=== PATIENT | male | born 1975 | race Caucasian/White ===

== ENCOUNTER 2023-12-06 11:43 | Emergency (ER) | payer OTHER, SELFPAY ==
--- NOTE | ~2023-12-06 | XR_ITS ---
EXAMINATION: XR ribs LT 2V w CXR 2V DATE: 12/06/2023 12:19 INDICATION: Pain at the lower left ribs after injury while bending with audible pop TECHNIQUE: A frontal inspiratory view of the chest and 3 views of the left ribs were obtained. COMPARISON: None FINDINGS: Widening of the left acromioclavicular joint with old healed fracture deformity lateral left clavicle . Minimally displaced anterior left eighth rib fracture. There are additional likely old fractures of the lateral left 10th and 11th ribs. Minimal biapical pleural-parenchymal scarring. No other airspac e opacities, pulmonary edema, pleural effusion or pneumothorax. Cardiomediastinal silhouette is catrachita l. IMPRESSION: 1. Fractures of the posterolateral left 10th and 11th ribs which appear chronic but with more acute a ppearing fracture of the anterior left eighth rib. Correlate for point tenderness at these locations. 2. No acute cardiopulmonary disease. Reviewed, dictated and finalized at location A. [facility] MACHINE OPERATOR IMPRESSION: 1. Fractures of the posterolateral left 10th and 11th ribs which appear chronic but with more acute appearing fracture of the anterior left eighth rib. Correl ate for point tenderness at these locations. 2. No acute cardiopulmonary disease.
[2023-12-06 11:44] VITALS: BP 164/115; PULSE 104; RESP 19; TEMP 36.7; O2SAT 100
--- NOTE | 2023-12-06 11:59 | ED.GENADULT ---
HPI - General Adult General Chief complaint: Unspecified Stated complaint: L rib injury Time Seen by Provider: 12/06/23 11:46 Source: patient Mode of arrival: ambulatory Limitations: no limitations History of Present Illness HPI narrative: patient is a 48-year-old male with left rib pain after leaning over of steel rail and lifting heavy equipment. This happened 3 days ago. Onset (ago): day(s) (3) Location: chest ( Left ribs) Radiation: non-radiation Severity: moderate and severe Severity scale (1-10): 7 Quality: sharp Pain Consistency: constant Relieving factors: immobilization Exacerbating factors: movement Associated symptoms: denies other symptoms Treatments prior to arrival: none Related Data Allergies Allergy/AdvReac Type Severity Reaction Status Date / Time No Known Allergies Allergy Verified 12/06/23 11:50 Review of Systems Review of Systems: All systems reviewed & are unremarkable except as noted in HPI and below Constitutional: Constitutional: Reports no additional constitutional complaints Eyes: Eyes: Reports no additional eye complaints ENT: Reports system reviewed and no additional complaints, except as documented Cardiovascular: Cardiovascular: Reports no additional cardiovascular complaints Respiratory: Respiratory: Reports no additional respiratory complaints Gastrointestinal: Gastrointestinal: Reports no additional gastrointestinal complaints Genitourinary: Genitourinary: Reports no additional male genitourinary complaints Musculoskeletal: Musculoskeletal: Reports no additional musculoskeletal complaints Integumentary/Breasts: Skin/Breast: Reports system reviewed and no additional complaints, except as docu Neurologic: Reports system reviewed and no additional complaints, except as documented Psychiatric: Psychiatric: Reports no additional psychiatric complaints Endocrine: Endocrine: Reports no additional endocrine complaints Hematologic/Lymphatic: Hematologic/Lymphatic: Reports no additional hematologic/lymphatic complaints Allergic/Immunologic: Allergic/Immunologic: Reports no additional allergic/immunologic complaints [facility] Family History Family History Father Family history of malignant neoplasm Social History Social History Smoking status: Light tobacco smoker Alcohol intake: current Exam Const: General: cooperative, healthy appearing and comfortable HENMT: Head: normal to inspection, No palpable skull fracture present and normocephalic Eyes: General: appearance normal, both eyes and all related structures Visual Tristan: normal visual tristan by confrontation Alignment and Position: alignment normal Neck: Neck: normal visual inspection, full ROM and no lymphadenopathy Chest: Chest palpation & inspection: normal inspection of the chest, abnormal palpation of chest wall and normal inspection of the chest Other: left ribs around the 8th rib anteriorly has tenderness and slight crepitus without movement of the rib in either direction or deformity Resp: Effort & Inspection: normal respiratory effort and able to speak in complete sentences Auscultation: clear to auscultation bilaterally Percussion: percussion normal Cardio: Jugular venous distension: no JVD Palpation: normal PMI Rate: regular rate Rhythm: regular rhythm Heart sounds: S1 normal heart sound present, S2 normal heart sound present and no murmurs GI: Inspection: normal to inspection, no abdominal wall ecchymosis, no edema and non-distended Back/Spine/Pelvis: Back: no CVA tenderness Skin: General skin exam: normal color, no rashes or lesions noted and elasticity normal Neuro: General: oriented to person, oriented to place, oriented to time, patient oriented x3 and gait normal Cranial nerves: Yes CN's II-XII intact bilaterally Extrem: General: normal to inspection, full ROM, capillary r
[2023-12-06 12:00] VITALS: RESP 16; O2SAT 99
[2023-12-06] MEDS: KETOROLAC (*BKC) 60 MG/2 ML VIAL IM (12:47)
[2023-12-06 12:54] VITALS: BP 135/105; PULSE 88; RESP 19; O2SAT 99
== END 2023-12-06 12:55 | disposition home or self-care (01) ==
PROVIDERS: Emergency Provider Emergency Medicine; PCP Internal Medicine
DX: S22.32XA Fracture of one rib, left side, initial encounter for closed fracture (principal); F17.200 Nicotine dependence, unspecified, uncomplicated; X50.0XXA Overexertion from strenuous movement or load, initial encounter
CPT/HCPCS: 71046; 71100; 96372; 99283; J1885

== ENCOUNTER 2025-09-09 09:42 | Emergency (ER) | payer SELFPAY ==
--- NOTE | ~2025-09-09 | XR_ITS ---
Examination: XR chest 1V portable Clinical History: vision loss Comparison: None Technique: Portable AP Findings: Heart size normal. Lungs clear. No acute bony abnormality. IMPRESSION: 1. No acute cardiopulmonary findings given portable technique. Reviewed, dictated and finalized at location [facility]. [facility]
--- NOTE | ~2025-09-09 | CT_ITS ---
EXAM/PROCEDURE: CTA brain carotid HISTORY: vision loss-B/L COMPARISON: Noncontrast brain CT same date TECHNIQUE: IV contrast enhanced angiography of the neck and brain arteries. FINDINGS: In the visualized upper chest, three-vessel left-sided arch present. At least mild aneurysmal dilatation of the partially visualized ascending thoracic aorta measuring 4.2 cm. Both common carotid and cervical ICAs are patent. Vertebral arteries are patent. The left vertebral artery is dominant. The anterior middle cerebral arteries and intracranial carotid arteries are patent. Basilar artery and singe winder are patent. origin of the left [employer]. No dural sinus thrombosis, AVM or abnormal enhancing lesions/masses seen. Moderate mucoperiosteal thickening in the right maxillary sinus. No abnormal enhancing lesions or masses. 5 mm nodule mid pole of the left thyroid. IMPRESSION: 1. No critical arterial stenosis or occlusion. 2. Incidental findings noted including at least mild aneurysmal dilatation of the partially visualized ascending thoracic aorta, mild paranasal sinus disease, and left lobe thyroid nodule. Reviewed, dictated and finalized at location A. NCE EXECUTIVE IMPRESSION: 1. No critical arterial stenosis or occlusion. 2. Incidental findings noted including at least mild aneurysmal dilatation of t he partially visualized ascending thoracic aorta, mild paranasal sinus disease, and left lobe thyroid nodule.
--- NOTE | ~2025-09-09 | CT_ITS ---
EXAMINATION: CT brain wo con DATE: 09/09/2025 10:07 INDICATION: Bilateral vision loss TECHNIQUE: Computed tomography (CT) of the head was performed without intravenous contrast. Sagittal and coronal reconstructions were performed. The mA was adjusted according to patient size. Iterative reconstruction technique was employed. The dose-length product was 832.33 mGy-cm. COMPARISON: None FINDINGS: A couple small old lacunar infarcts to the left and to the right of midline in the central amrik. No acute intracranial hemorrhage, acute infarction or abnormal extra axial fluid collection. Ventricles are normal and symmetric. No mass/mass effect. The orbits, paranasal sinuses and mastoid air cells are normal. No acute intracranial hemorrhage, acute infarction or abnormal extra axial fluid collection. Ventricles are normal and symmetric. No mass/mass effect. The orbits, paranasal sinuses and mastoid air cells are normal. IMPRESSION: 1. 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 No acute intracranial process. Dr. Romero discussed these findings with Dr. Singletary at 10:05 AM. Reviewed, dictated and finalized at location A. YSIS EQUIPMENT TECHNICIAN IMPRESSION: 1. 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 No acute intr acranial process. Dr. Romero discussed these findings with Dr. Singletary at 10 :05 AM.
--- NOTE | 2025-09-09 09:51 | ECG_ITS ---
Test Date: 2025-09-09 10:18:42 Measurements Intervals [place] Rate: 87 P: 45 [place]: 183 QRS: -53 QRSD: 96 T: 36 QT: 363 QTc: 437 Interpretive Statements SINUS RHYTHM POSSIBLE LEFT ATRIAL ENLARGEMENT [-0.1mV P-WAVE IN V1/V2] LEFT ANTERIOR FASCICULAR BLOCK [QRS AXIS <= -45, QR IN I, RS IN II] No previous ECG available for comparison Electronically Signed On 09-10-2025 10:50:42 [facility] [place] by Oliverio Rivera M.D.
--- NOTE | 2025-09-09 09:56 | ED.GENADULT ---
HPI - General Adult General Chief complaint: Neuro Symptoms/Deficit Stated complaint: I can barely see x 35 mins Time Seen by Provider: 09/09/25 09:55 History of Present Illness HPI narrative: 50-year-old male presents to the emergency department for evaluation for worsening vision on the left of both eyes. patient states this occurred approximately 920. Patient was at a work site when he noticed a change in vision. Patient states he can see well out of the right-sided his eyes but not the left. Patient does have prior history of coronary disease and angioplasty. Patient denies any prior history of CVA. Patient denies any other pain or injury or neurologic changes Related Data Allergies Allergy/AdvReac Type Severity Reaction Status Date / Time No Known Allergies Allergy Verified 09/09/25 10:20 Review of Systems Review of Systems: All systems reviewed & are unremarkable except as noted in HPI and below PMFSH Family History Family History Father Family history of malignant neoplasm Social History Social History Alcohol intake: current Course Vital Signs Vital signs: Vital Signs Temperature 97.8 F 09/09/25 10:12 Pulse Rate 95 09/09/25 10:12 Respiratory Rate 16 09/09/25 10:12 Blood Pressure 139/108 H 09/09/25 10:12 Pulse Oximetry 98 09/09/25 10:12 Oxygen Delivery Room Air 09/09/25 10:12 Temperature 97.8 F 09/09/25 10:12 Pulse Rate 84 09/09/25 10:29 Respiratory Rate 14 09/09/25 10:28 Blood Pressure 139/108 H 09/09/25 10:28 Pulse Oximetry 96 09/09/25 10:28 Oxygen Delivery Room Air 09/09/25 10:12 Medical Decision Making [facility] Narrative Medical decision making narrative: 50-year-old male present to the emergency department for evaluation for acute onset of vision changes at approximately 9:20 a.m.. At re-evaluation at 10:14 a.m. patient states that he has had no improvement of his symptoms. Patient describes extremely blurry vision on the left lateral eye and total loss of vision on the right medial eye. concern for left homonymous hemianopsia. patient does describe a right-sided posterior headache. CTA showed no acute bleed. Patient is not on any blood thinners. Patient is was found blood pressure medication but is not compliant with this. Discussed case with the transfer center at approximately 10:20 a.m. case was discussed with Dr. Montiel with the neuro stroke team and was agreed to give T and K and patient is a time symptoms transfer. I discussed the case with the ED dr Vila Critical Care Procedure Note Authorized and Performed by: Raul Singletary Total critical care time: Approximately 36 minutes Due to a high probability of clinically significant, life threatening deterioration, the patient required my highest level of preparedness to intervene emergently and I personally spent this critical care time directly and personally managing the patient. This critical care time included obtaining a history; examining the patient; pulse oximetry; ordering and review of studies; arranging urgent treatment with development of a management plan; evaluation of patient's response to treatment; frequent reassessment; and, discussions with other providers. This critical care time was performed to assess and manage the high probability of imminent, life-threatening deterioration that could result in multi-organ failure. It was exclusive of separately billable procedures and treating other patients and teaching time. Please see MDM section and the rest of the note for further information on patient assessment and treatment. Differential Diagnosis Differential Diagnosis: CVA, TIA Vital Signs Vital Signs: Vital Signs Temperature 97.8 F 09/09/25 10:12 Pulse Rate 95 09/09/25 10:12 Respiratory Rate 16 09/09/25 10:12 Blood Pressure 139/108 H 09/09/25 10:12 Pulse Oximetry 98 09/09/25 10:12 Oxygen Delivery Room Air 09/09/25 10:12 Temperature 97.8 F 09/09/25 10:12 Pulse Rate 84 09/09/25 10:29 Respiratory Rate 14 09/09/25 10:28 Blood Pressure 139/108 H 09/09/25 10:28 Pulse Oximetry 96 09/09/25 10:28 Oxygen Delivery Room Air 09/09/25 10:12 Lab Data Lab results reviewed: Yes I reviewed the patient's lab results. 09/09/25 09:56 09/09/25 11:03 Labs: Lab Results 09/09/25 09/09/25 09/09/25 Range/Units 09:50 09:56 11:03 WBC 6.8 (4.5-10.0) K/mm3 RBC 4.70 (4.6-6.20) M/mm3 Hgb 16.2 (14.0-18.0) g/dL Hct 47.0 (42.0-52.0) % MCV 100.0 (80-100) fl MCH 34.5 H (26-34) pg MCHC 34.5 (32-36) g/dl RDW 12.7 (11.5-14.5) % Plt Count 251 (150-375) k/mm3 MPV 10.4 (7.4-10.4) fl Immature Gran % (Auto) 0.1 (0-0.5) % Neut % (Auto) 56.5 (45.5-73.1) % Lymph % (Auto) 36.0 (18.3-44.2) % [place] % (Auto) 6.6 (2.6-8.5) % Eos % (Auto) 0.4 (0-4.4) % Baso % (Auto) 0.4 (0.2-1.2) % Lymph # (Auto) 2.46 (0.9-3.2) K/mm3 [place] # (Auto) 0.5 (0.1-0.6) K/mm3 Eos # (Auto) 0.0 (0-0.3) K/mm3 Baso # (Auto) 0.0 (0.0-0.1) K/mm3 Abs Immat Gran (auto) 0.01 (0.00-0.031) K/mm3 Absolute Neuts (auto) 3.9 (1.3-6.7) K/mm3 Absolute Nucleated RBC 0.000 (0.0-0.012) K/mm3 Nucleated RBC % 0.0 (0.0-0.2) % PT 11.8 (11.1-14.7) Seconds INR 0.9 APTT 25.9 (22.3-36.8) Seconds Sodium 140 (137-145) mmol/L Potassium 3.5 (3.4-5.0) mmol/L Chloride 102 (98-107) mmol/L Carbon Dioxide 25 (22-30) mmol/L Anion Gap 13 H (4-12) mmol/L BUN 8 L (9-20) mg/dL Creatinine 1.02 1.30 (0.7-1.3) mg/dL Estim Creat Clear Calc Not Reportable Not Reportable Estimated GFR > 60 59 (59 - ) Glucose 108 (65-110) mg/dL POC Capillary Glucose 147 H (65-105) mg/dl Calcium 10.3 H (8.4-10.2) mg/dL Total Bilirubin 0.4 (0.2-1.3) mg/dL AST 51 (17-59) U/L ALT 54 H (6-50) U/L Alkaline Phosphatase 97 (38-126) U/L Troponin I < 0.012 (0.000-0.034) ng/mL Total Protein 9.9 H (6.3-8.2) g/dL Albumin 5.2 H (3.5-5.1) g/dL Imaging Data Radiologist's impression: Impressions Head CT 09/09/25 10:12 IMPRESSION: 1. 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 No acute intracranial process. Dr. Romero discussed these findings with Dr. Singletary at 10:05 AM. Head/Neck CTA 09/09/25 10:23 IMPRESSION: 1. No critical arterial stenosis or occlusion. 2. Incidental findings noted including at least mild aneurysmal dilatation of the partially visualized ascending thoracic aorta, mild paranasal sinus disease, and left lobe thyroid nodule. Chest X-Ray 09/09/25 10:47 IMPRESSION: 1. No acute cardiopulmonary findings given portable technique. Discharge Plan Discharge Clinical Impression: Cerebrovascular accident, Homonymous hemianopsia due to recent cerebral infarction Patient Disposition: Acute Care Hospital Condition: Critical Patient Language: Slovenian Prescriptions: No Action hydrocodone-acetaminophen 5-325 mg tablet 1 tablet PO Q6H PRN (Reason: pain) Qty: 20 0RF Follow-up/Referrals: Tripp,Brandon Jonas MD [Primary Care Provider] Quality Stroke Scale Stroke Scale 1: Stroke scale time:: 09:57 1a Level of consciousness: alert-0 1b Level of consciousness questions: answers both correctly-0 1c Level of consciousness commands: obeys both correctly-0 2 Best gaze: normal-0 3 Visual: bilateral hemianopia-3 4 Facial palsy: normal-0 5a Motor: left arm: no drift-0 5b Motor: right arm: no drift-0 6a Motor: left leg: no drift-0 6b Motor: right leg: no drift-0 7 Limb ataxia: absent-0 8 Sensory: normal-0 9 Best language: no aphasia-0 10 Dysarthria: normal-0 11 Extinction and inattention: no abnormality-0 Level:: 3
[2025-09-09 10:02] LABS: Hematocrit 47.0 % (42.0-52.0); Hemoglobin 16.2 g/dL (14.0-18.0); Immature Granulocyte Percent A 0.1 % (0-0.5); Lymphocytes Absolute Auto 2.46 K/mm3 (0.9-3.2); Mean Corpuscular HGB Conc 34.5 g/dl (32-36); Mean Corpuscular Hemoglobin 34.5 pg (26-34); Mean Corpuscular Volume 100.0 fl (80-100); Nucleated Red Blood Cells Absolute Auto 0.000 K/mm3 (0.0-0.012); Nucleated Red Blood Cells Perc 0.0 % (0.0-0.2); Platelet Count Result 251 k/mm3 (150-375); Red Blood Count 4.70 M/mm3 (4.6-6.20); White Blood Count 6.8 K/mm3 (4.5-10.0)
[2025-09-09 10:07] LABS: Estimated Glomerular Filt Rate 59
[2025-09-09 10:12] VITALS: BP 139/108; PULSE 95; RESP 16; TEMP 36.6; O2SAT 98
[2025-09-09 10:13] LABS: INR 0.9; Prothrombin Time 11.8 Seconds (11.1-14.7)
[2025-09-09 10:14] LABS: Partial Thromboplastin Time 25.9 Seconds (22.3-36.8)
[2025-09-09 10:16] LABS: Alanine Aminotransferase 54 U/L (6-50); Albumin Level 5.2 g/dL (3.5-5.1); Alkaline Phosphatase 97 U/L (38-126); Anion Gap 13 mmol/L (4-12); Aspartate Amino Transferase 51 U/L (17-59); Bilirubin,Total 0.4 mg/dL (0.2-1.3); Blood Urea Nitrogen 8 mg/dL (9-20); Calcium 10.3 mg/dL (8.4-10.2); Carbon Dioxide 25 mmol/L (22-30); Chloride 102 mmol/L (98-107); Estimated Glomerular Filt Rate > 60; Glucose 108 mg/dL (65-110); Potassium 3.5 mmol/L (3.4-5.0); Sodium 140 mmol/L (137-145); Total Protein 9.9 g/dL (6.3-8.2)
--- OUTSIDE RECORDS SUMMARY | 2025-09-09 10:21 | XMS_ITS | Clinical Summary ---
Author Organization [facility] Address [address] [place] [address] Phone Care Team Providers Care Net Washer Name Role Phone Casper Almaguer MD Primary Care Provider [phone] Allergies No known active allergies Medications famotidine (PEPCID) 40 MG Tablet Take 40 mg by mouth. Active HYDROcodone-nellie taminophen (NORCO) 5-325 MG TabletIndicatio ns:Right foot pain,Closed displaced fracture of middle phalanx of lesser toe of right foot, initial encounter Take 1 Tablet by mouth every 4 hours as needed for Moderate or more severe pain. 12 Tablet 1 Active Additional Information Patient not taking.Reported on 05/08/2023 amphetamine-dex troamphetamine (ADDERALL) 30 MG Tablet Take 30 mg by mouth daily. 3 Active celecoxib (CeleBREX) 100 MG Capsule TAKE 1 CAPSULE BY MOUTH TWICE DAILY NEEDED FOR PAIN. DO NOT COMBINE WITH IBUPROFEN. 3 Active cyclobenzaprine (FLEXERIL) 10 MG Tablet Take 10 mg by mouth. 2 Active famotidine (PEPCID) 20 MG Tablet Take 20 mg by mouth 2 times daily. 3 Active escitalopram (LEXAPRO) 10 MG Tablet Take 10 mg by mouth. Active losartan (COZAAR) 50 MG Tablet Take 50 mg by mouth daily. 3 Active tamsulosin (FLOMAX) 0.4 MG Capsule Take 0.4 mg by mouth. 2 Active Active Problems No known active problems Social History Tobacco Use Types Packs/Day Years Used Date Smoking Tobacco: Every Day Smokeless Tobacco: Never Alcohol Use Standard Drinks/Week Comments Yes 0 (1 standard drink = 0.6 oz pur e alcohol) Sex and Gender Information Value Date Recorded Sex Assigned at Not on file Legal Sex Male 1:27 PM CDT Gender Identity Not on file Sexual Orientation Not on file Last Filed Vital Signs Vital Sign Reading Time Taken Comments Blood Pressure 124/82 05/08/2023 3:00 PM CDT Pulse 89 05/08/2023 3:00 PM CDT Temperature 36.9 C (98.5 F) 05/08/2023 3:00 PM CDT Respiratory Rate 18 05/08/2023 3:00 PM CDT Oxygen Saturation 100% 05/08/2023 3:00 PM CDT Inhaled Oxygen Concentration - - Weight 77.1 kg (170 lb) 05/08/2023 3:00 PM CDT Height 170.2 cm (5' 7) 04/26/2021 2:12 PM CDT Body Mass Index 26.63 04/26/2021 2:12 PM CDT Plan of Treatment Health Maintenance Due Date Last Done Comments Hepatitis C Virus (HCV) Screening 1977 TdaP Immunization 1977 Hepatitis B Immunization (1 of 3 - 19+ 3-dose series) 1996 Cologuard 2022 Immunochemical Fecal Occult Blood 2022 Influenza Immunization (#1) 2025 SARS-COV-2 Immunization ( season) 2025 Colonoscopy 03/14/2033 03/14/2023 Colorectal Cancer Screening 03/14/2033 Respiratory Syncytial Virus (RSV) Immunization (Adult) (1 - 1-dose 75+ series) 2052 Human Papillomavirus (HPV) Immunization Aged Out No longer eligible b ased on patient's age to complete this topic Meningococcal Immunization (ACWY) Aged Out No longer eligible based on patient's age to complete this topic Pneumococcal Immunization Combined Aged Out No longer eligible based on patient's age to complete this topic Rotavirus Immunization Aged Out No lo nger eligible based on patient's age to complete this topic Insurance [facility] MEDICAID [place] Care Teams Net Washer Relationship Specialty Start Date End Date Casper Almaguer MD [address] [address] PCP - General Internal Medicine 05/08/23
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
[2025-09-09 10:24] VITALS: BP 145/107; PULSE 83; RESP 14; O2SAT 99
[2025-09-09 10:27] LABS: Troponin I < 0.012 ng/mL (0.000-0.034)
[2025-09-09 10:28] VITALS: BP 139/108; PULSE 86; RESP 14; O2SAT 96
[2025-09-09 10:29] VITALS: PULSE 84
[2025-09-09] MEDS: TENECTEPLASE 50 MG/10 ML VIAL 21.2 MG IV PUSH (10:35)
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
--- OUTSIDE RECORDS SUMMARY | 2025-09-09 11:16 | XMS_ITS | Clinical Summary ---
Author Organization [facility] Address [address] [place] [address] Phone Care Team Providers Care Site Monitor Name Role Phone Casper Almaguer MD Primary Care Provider [phone] Allergies No known active allergies Medications famotidine [...] patient's age to complete this topic Insurance [facility] MEDICAID [place] Care Teams Site Monitor Relationship Specialty Start Date End Date Casper Almaguer MD [address] [address] PCP - General Internal Medicine 05/08/23
== END 2025-09-09 10:55 | disposition short-term general hospital (02) ==
PROVIDERS: Emergency Provider Emergency Medicine; PCP Internal Medicine
DX: I63.9 Cerebral infarction, unspecified (principal); R29.703 NIHSS score 3; H53.462 Homonymous bilateral field defects, left side; I25.10 Atherosclerotic heart disease of native coronary artery without angina pectoris; Z98.61 Coronary angioplasty status
CPT/HCPCS: 36415; 37195; 70450; 70496; 70498; 71045; 80053; 82948; 84484; 85025; 85610; 85730; 93005; 99285; J3101; Q9967